=== PATIENT | male | born 1985 | race Hispanic/Latino ===

== ENCOUNTER 2020-11-14 11:27 | Emergency (ER) | payer OTHER, SELFPAY ==
[2020-11-14] VITALS (13 sets, daily range): BP systolic 106–153; BP diastolic 62–89; PULSE 74–85; RESP 14–25; TEMP 37; O2SAT 95–99; BMI 28.2
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
[2020-11-14] MEDS: SODIUM CHLORIDE 0.9% 500 ML 1000 ML IV (12:33)
[2020-11-14] MEDS: ONDANSETRON 4 MG/2 ML INJ IV (12:33)
[2020-11-14] MEDS: MORPHINE 4 MG/ML INJ IV (12:33)
[2020-11-14 12:45] LABS: Add Manual Diff / Slide Review NO; Basophils Absolute Auto 100 /uL (0-100); Eosinophils Absolute Auto 100 /uL (0-450); Eosinophils Percent Auto 2.2 % (2-4); Hematocrit 42.6 % (41-53); Hemoglobin 14.4 g/dL (13.5-17.5); Lymphocytes Absolute Auto 1900 /uL (1100-4500); Lymphocytes Percent Auto 27.4 % (25-40); Mean Corpuscular HGB Conc 33.9 % (30-36); Mean Corpuscular Hemoglobin 30.6 PG (26-34); Mean Corpuscular Volume 90.2 fL (80-100); Monocytes Absolute Auto 500 /uL (0-900); Monocytes Percent Auto 7.8 % (3-14); Neutrophils Absolute Auto 4300 /uL (1500-7000); Neutrophils Percent Auto 61.6 % (50-75); Platelet Count 244 X10^3/uL (150-400); Red Blood Cell Count 4.72 X10^6/uL (4.5-5.9); Red Cell Distribution Width 12.7 % (11.6-14.8); White Blood Cell Count 6.9 X10^3/uL (4.5-11.0)
[2020-11-14 13:02] LABS: Alanine Aminotransferase 55 IU/L (<50); Albumin 4.1 g/dL (3.5-5.0); Albumin Globulin Ratio 1.3 (1.0-2.8); Alkaline Phosphatase 68 U/L (38-126); Aspartate Aminotransferase 58 IU/L (17-59); BUN Creatinine Ratio 17.1 (6-22); Bilirubin Total 0.6 mg/dL (0.2-1.3); Blood Urea Nitrogen 12 mg/dL (9-20); Calcium 9.6 mg/dL (8.4-10.2); Carbon Dioxide 30 mmol/L (22-32); Chloride 101 mmol/L (98-107); Creatine Kinase 256 U/L (55-170); Estimated Glomerular Filt Rate > 60.0 mL/min (>60); Globulin 3.2 g/dL (1.7-4.1); Glucose 95 mg/dL (70-100); HEMOLYSIS < 15 (0-50); Lipase 30 U/L (23-300); Potassium 4.1 mmol/L (3.4-5.1); Sodium 135 mmol/L (137-145); Total Protein 7.3 g/dL (6.3-8.2)
[2020-11-14 13:14] LABS: Troponin I < 0.012 ng/mL (0.01-0.034)
--- NOTE | 2020-11-14 13:18 | DI.CT.S_ITS ---
PROCEDURE: CT ANGIO CHEST PE PROTOCOL INDICATIONS: Dyspnea/chest pain/trauma TECHNIQUE: After the administration of intravenous contrast, 2 mm thick sections acquired from the pulmonary apices to the posterior costophrenic angles. 3-dimensional maximum intensity projection (MIP) coronal and sagittal reformats were then acquired through the thorax. For radiation dose reduction, the following was used: automated exposure control, adjustment of mA and/or kV according to patient size. COMPARISON: None. FINDINGS: Image quality: Good. Pulmonary arteries: No central pulmonary embolism. Decreased opacification in the right middle lobe pulmonary artery, (6/71), compared to other segmental pulmonary arteries. RV to LV ratio is 0.8. Lungs and pleura: No pulmonary parenchymal infarct. Bilateral dependent platelike airspace opacity which has the appearance of atelectasis. No pleural effusions or pneumothorax. Central and peripheral airways are patent. Mediastinum: Heart size is normal, without pericardial effusion. Right upper paratracheal lymph node with a short axis diameter of 1.1 cm, (6/37). Thoracic aorta is normal in caliber and enhancement. Esophagus is normal in caliber, without hiatal hernia. Bones and chest wall: No suspicious bony lesions. Right 2-5th rib fractures. The 4th rib fracture is mildly displaced, (6/82). No segmental rib fractures seen. Thyroid gland is unremarkable. Bilateral gynecomastia. No axillary or supraclavicular adenopathy. Abdomen: Hepatic steatosis. Visualized upper abdominal solid organs appear normal in the early arterial phase of enhancement. IMPRESSION: 1. Concern for right middle lobe segmental pulmonary embolism. Artifact could have a similar appearance. 2. Right anterior 2-5th rib fractures. The right 4th rib fracture is mildly displaced. 3. Bilateral atelectasis. 4. Hepatic steatosis. 5. Mildly enlarged right upper paratracheal lymph node. This is indeterminate. Comment: Findings were discussed with Vinay Freedman at the time of dictation. Dictated by: Phil Rai M.D. on 11/14/2020 at 13:28 Approved by: Phil Rai M.D. on 11/14/2020 at 13:50
[2020-11-14 13:21] LABS: CKMB % Relative Index 0.1 % (1.5-5.0); Creatine Kinase MB < 0.22 ng/mL (<2.37)
[2020-11-14] MEDS: HYDROMORPHONE 1 MG INJ IV (13:38)
[2020-11-14 14:09] LABS: D Dimer 790 ng/mL (<230)
[2020-11-14 15:28] LABS: COVID19 - ADMIT (NP swab/PCR) Negative (Negative)
[2020-11-14] MEDS: HYDROMORPHONE 1 MG INJ IM (17:04)
== END 2020-11-14 17:25 | disposition short-term general hospital (02) ==
PROVIDERS: Emergency Provider Emergency Medicine; PCP Student in an Organized Health Care Education/Training Program
DX: S22.49XA Multiple fractures of ribs, unspecified side, initial encounter for closed fracture (principal); S32.9XXA Fracture of unspecified parts of lumbosacral spine and pelvis, initial encounter for closed fracture; R07.9 Chest pain, unspecified; V29.9XXA Motorcycle rider (driver) (passenger) injured in unspecified traffic accident, initial encounter; Z20.828 Contact with and (suspected) exposure to other viral communicable diseases
CPT/HCPCS: 36415; 71275; 80053; 82550; 82553; 83690; 84484; 85025; 85379; 87635; 93005; 93010; 96361; 96372; 96374; 96375; 99284; C9803; J1170; J2270; J2405

== ENCOUNTER 2022-02-22 13:00 | Outpatient (CLI) | payer OTHER, SELFPAY | END 2022-02-26 13:33 | disposition home or self-care (01) | LOC: PHYS 13:02 | PROVIDERS: Family Provider Student in an Organized Health Care Education/Training Program; PCP Student in an Organized Health Care Education/Training Program; Referring Provider Student in an Organized Health Care Education/Training Program; Visit Provider Student in an Organized Health Care Education/Training Program | DX: M25.539 Pain in unspecified wrist (principal) | CPT/HCPCS: 95886; 95911 ==

== ENCOUNTER → 2022-05-22 13:56 | Outpatient (CLI) | payer OTHER, SELFPAY ==
--- NOTE | 2022-05-22 | DI.MRI.S_ITS ---
PROCEDURE: MR LUMBAR SPINE WO CON INDICATIONS: Low back pain, unspecified TECHNIQUE: Noncontrast sagittal T1 spin echo and T2 fast echo, sagittal STIR, and T2 fast spin echo through the lumbar spine. In cases with scoliosis, additional coronal T2 fast spin echo may be performed. COMPARISON: [facility] [place], CR, XR LUMBAR SPINE WITH OBLIQUES PLUS FLEXION EXTENSION, 05/08/2022, 15:49. FINDINGS: Image quality: Excellent. Alignment and Curvature: There is normal bony alignment. Bone Marrow: Marrow is of normal overall signal. No acute vertebral body compression fractures. Spinal Cord: Conus medullaris terminates at the L1 level. Visualized cord demonstrates normal signal and size. Paraspinous Soft Tissues: No paravertebral masses. T12-L1: Normal appearance. L1-L2: Normal appearance. L2-L3: Normal appearance. L3-L4: Normal appearance. L4-L5: Normal appearance. L5-S1: Mild right L5-S1 facet hypertrophy. IMPRESSION: Mild right L5-S1 facet arthropathy. No central stenosis. No neural foraminal narrowing. No neural compression. Dictated by: Emily Marcum MD, PhD on 05/22/2022 at 14:54 Approved by: Emily Marcum MD, PhD on 05/22/2022 at 14:56
== END ==
PROVIDERS: Family Provider Student in an Organized Health Care Education/Training Program; PCP Student in an Organized Health Care Education/Training Program; Referring Provider Physical Medicine & Rehabilitation Pain Medicine; Visit Provider Physical Medicine & Rehabilitation Pain Medicine
DX: M54.50 Low back pain, unspecified (principal); M47.817 Spondylosis without myelopathy or radiculopathy, lumbosacral region
CPT/HCPCS: 72148

== ENCOUNTER 2024-12-11 20:39 | Emergency (ER) | payer OTHER, SELFPAY ==
[2024-12-11 20:51] VITALS: BP 131/84; PULSE 90; RESP 16; TEMP 36.9; O2SAT 96; BMI 32.0
[2024-12-12 02:20] VITALS: BP 126/72; PULSE 78; RESP 18; TEMP 36.3; O2SAT 98
--- NOTE | 2024-12-12 03:33 | ED.WOUNDLAC ---
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 No other injuries. Bleeding controlled with local pressure and dressing. Last tetanus shot 1 year ago he believes. He can fully extend and bend the finger. No numbness to sides or tip of finger. No other injuries known. Related Data Home Medications Medication Instructions Recorded Confirmed acetaminophen 500 mg tablet 500 mg PO QID PRN 05/04/24 06/25/24 (Tylenol Extra Strength) amitriptyline 25 mg tablet 25 mg PO DAILY 05/04/24 06/25/24 bupropion HCl 300 mg 24 hr tablet, 300 mg PO QAM 05/04/24 06/25/24 extended release (Wellbutrin XL) buspirone 15 mg tablet 15 mg PO DAILY 05/04/24 06/25/24 gabapentin 400 mg capsule 400 mg PO 3XD 05/04/24 06/25/24 ibuprofen 200 mg capsule 200 mg PO Q6H PRN 05/04/24 06/25/24 mirtazapine 30 mg tablet 15 mg PO BEDTIME 05/04/24 06/25/24 rizatriptan 5 mg tablet 5 mg PO ONCE PRN 05/04/24 06/25/24 Previous Rx's Medication Instructions Recorded cephalexin 500 mg capsule 500 mg PO QID 7 days #28 caps 12/12/24 Allergies Allergy/AdvReac Type Severity Reaction Status Date / Time bee venom protein (honey bee) Allergy Verified 12/11/24 20:41 Patient History Medical History Right hip impingement syndrome Impingement syndrome of right shoulder Social History Smoking Status: Current every day smoker Smoking Status: Current every day smoker alcohol intake frequency: 0-2 drinks per day Exam Narrative Exam Narrative: GENERAL: Well-developed patient, in mild distress. HEAD: Atraumatic. Normocephalic. EYES: Pupils equal round and reactive. Extraocular motions intact. No scleral icterus. No injection or drainage. ENT: Nose without bleeding, purulent drainage. Throat without erythema, tonsillar hypertrophy or exudate. Airway patent. NECK: Trachea midline. Non tender CARDIOVASCULAR: Regular rate and rhythm without murmurs, gallops, or rubs. RESPIRATORY: Clear to auscultation. Breath sounds equal bilaterally. No wheezes, rales, or rhonchi. GASTROINTESTINAL: Abdomen soft, non-tender, nondistended. EXTREMITIES: Vertical long axis laceration 6-7 mm length midline, small grit/dirt contamination. Could not visualize any definitive tendon or joint structure or bone structure BACK: Nontender without deformity or crepitance. No flank tenderness. NEURO: AOx3. Motor functions grossly nonfocal SKIN: No rash or erythema of visible areas Initial Vital Signs Initial Vital Signs: Vital Signs Temperature 98.4 F 12/11/24 20:51 Pulse Rate 90 12/11/24 20:51 Respiratory Rate 16 12/11/24 20:51 Blood Pressure 131/84 12/11/24 20:51 Pulse Oximetry 96 12/11/24 20:51 Oxygen Delivery Method Room Air 12/11/24 20:51 Course Orders Ordered: ED Orders 12/12/24 03:35 XR finger RT min 2V Stat Discontinued Medications Cephalexin HCl (Cephalexin 250 Mg Capsule) 500 mg PO NOW ONE Stop: 12/12/24 03:41 Last Admin: 12/12/24 04:32 Dose: 500 mg Documented By: YUSEF Tramadol HCl (Tramadol 50 Mg Prepack) 1 bottle MISC DIRECTED ONE Stop: 12/12/24 04:16 Last Admin: 12/12/24 04:32 Dose: 1 bottle Documented By: YUSEF Vital Signs Vital signs: Vital Signs - 8 hr 12/12/24 02:20 Temperature 97.4 F L Pulse Rate 78 Respiratory Rate 18 Blood Pressure 126/72 Pulse Oximetry 98 Oxygen Delivery Method Room Air MDM - Wound/Laceration MDM Narrative Medical decision making narrative: Staff Certified Nurse Midwife device laceration to the top of the index finger long axis, no visible tendon or bone or joint like structures, some grit like contamination. Local anesthetic with irrigation. Wound then closed primarily with single stitch. X-ray prior to closure showed no obvious foreign body or fracture changes. Contamination concerning for possible infection. Oral dose Keflex given with prescription for further course sent to his pharmacy. X-ray right index finger. No obvious fracture or foreign body. See radiology report. We will check advised with PCP in the next couple of days on Saturday. Return precautions discussed. Discharge Plan Departure Patient Disposition: Home Clinical Impression: Finger laceration Instructions: DI for Laceration Repair Activity Restrictions/Additional Instructions: Staff Certified Nurse Midwife laceration to the top of the index finger at the proximal joint of the finger, good function extension, could not definitively see any tendon structure or bony structure or joint like structure. There was some small gritty material that looked like foreign body contamination. Local anesthesia was injected around the wound and irrigated for cleansing. Oral antibiotic cephalexin to help prevent infection, further antibiotics sent to your pharmacy. X-ray showed no obvious fracture or foreign body. Wound stitch closed. Dressed. Wound check advised Saturday with your regular doctor. Return earlier to this/nearest emergency department for any change worsening symptoms or any concerns prior. Prescriptions: New cephalexin 500 mg capsule 500 mg PO QID 7 Days Qty: 28 0RF No Action rizatriptan 5 mg tablet 5 mg PO ONCE PRN Patient Comments: As needed mirtazapine 30 mg tablet 15 mg PO BEDTIME Patient Comments: As needed buspirone 15 mg tablet 15 mg PO DAILY amitriptyline 25 mg tablet 25 mg PO DAILY bupropion HCl [Wellbutrin XL] 300 mg tablet extended release 24 hr 300 mg PO QAM gabapentin 400 mg capsule 400 mg PO 3XD ibuprofen 200 mg capsule 200 mg PO Q6H PRN acetaminophen [Tylenol Extra Strength] 500 mg tablet 500 mg PO QID PRN Referrals: Miscellaneous,DoctorMD [Primary Care Provider] - Stand Alone Forms: Patient Portal/API/Survey
--- NOTE | 2024-12-12 03:35 | DI.RAD.S_ITS ---
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 COMPARISON: None. FINDINGS: Bones: No fractures or dislocations. No suspicious bony lesions. Soft tissues: There is generalized soft tissue swelling of the 2nd finger. No radiopaque foreign bodies are seen. IMPRESSION: There is generalized soft tissue swelling seen of the 2nd finger, yet without a radiopaque foreign body or displaced fracture. Note: No significant discrepancy from the preliminary report. Dictated by: Philipp Puente M.D. on 12/12/2024 at 9:01 Approved by: Philipp Puente M.D. on 12/12/2024 at 9:02
[2024-12-12] MEDS: TRAMADOL 50 MG PREPACK 1 BOTTLE MISC (04:32)
[2024-12-12] MEDS: cephALEXin 250 MG CAPSULE 500 MG PO (04:32)
== END 2024-12-12 04:45 | disposition home or self-care (01) ==
PROVIDERS: Emergency Provider Emergency Medicine; Family Provider Student in an Organized Health Care Education/Training Program
DX: S61.210A Laceration without foreign body of right index finger without damage to nail, initial encounter (principal); W26.8XXA Contact with other sharp object(s), not elsewhere classified, initial encounter
CPT/HCPCS: 73140; 99283